=== PATIENT | male | born 1990 | race Caucasian/White ===

== ENCOUNTER 2020-05-22 02:00 | Emergency (ER) | payer OTHER, SELFPAY ==
[2020-05-22 02:15] VITALS: BP 133/92; PULSE 98; RESP 18; TEMP 36.9; O2SAT 95; BMI 27.8
--- NOTE | 2020-05-22 04:46 | PC.NURSE ---
pt walked out of room at aprox 2am, per md.
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
== END 2020-05-22 03:00 | disposition left against medical advice (07) ==
PROVIDERS: Emergency Provider Emergency Medicine
DX: F41.9 Anxiety disorder, unspecified (principal)
CPT/HCPCS: 99282